=== PATIENT | male | born 1970 | race Two or more races ===

== ENCOUNTER 2024-05-12 07:11 | Outpatient (CLI) | payer OTHER, SELFPAY ==
--- NOTE | ~2024-05-12 | XR_ITS ---
XR shoulder RT min 2V Ordering provider: Etienne Stearns MD History: . M25.519 - Pain in unspecified shoulder . Comparison: None. FINDINGS: BONES: No acute fracture or dislocation. JOINT SPACES: The acromioclavicular joint is normal. The glenohumeral joint is normal. SOFT TISSUES: Normal. IMPRESSION: No acute osseous abnormality right shoulder. Reviewed, dictated and finalized at location A. TABLE PREPARER
--- NOTE | ~2024-05-12 | XR_ITS ---
EXAMINATION: XR chest 2V 05/12/2024 07:26 INDICATION: Chest pain PROCEDURE: 2 view chest COMPARISON: No prior studies for comparison. FINDINGS: The lungs are clear. The cardiomediastinal silhouette is within normal limits. There are no pleural effusions. There is no pneumothorax suspected. IMPRESSION: 1: NO ACUTE CARDIOPULMONARY DISEASE. Reviewed, dictated and finalized at location B. R SECURITY
== END 2024-05-12 07:12 | disposition home or self-care (01) ==
PROVIDERS: PCP Internal Medicine; Visit Provider Internal Medicine
DX: M25.511 Pain in right shoulder (principal); R05.9 Cough, unspecified
CPT/HCPCS: 71046; 73030